=== PATIENT | female | born 1985 | race Caucasian/White ===

== ENCOUNTER 2019-02-27 21:18 | Emergency (ER) | payer MEDICAID ==
[~2019-02-27] VITALS: Ht 154.9 cm; Wt 117.9 kg
--- NOTE | 2019-02-27 21:34 | NUR ---
TO LOBBY A/W BED , AMBULATORY
--- NOTE | 2019-02-27 22:30 | NUR ---
PT AMBULATED TO BED 11
--- NOTE | 2019-02-27 22:45 | NUR ---
33 yo female bib self for c/o rash generalized. pt c/o itchiness/redness throughout body. pt aaox4, sitting up in bed. denies fever chills @ this time. abd soft non distended. skin warm dry intact. gurney locked in lowest position hx: denies allergies: denies
[2019-02-28 00:15] VITALS: BP 116/56
--- NOTE | 2019-02-28 00:16 | NUR ---
Patient discharged with v/s stable. Written and verbal after care instructions given and explained. Patient alert, oriented and verbalized understanding of instructions. Ambulatory with steady gait. All questions addressed prior to discharge. ID band removed. Patient advised to follow up with PMD. Rx of Prednisone and Benadryl given. Patient educated on indication of medication including possible reaction and side effects. Opportunity to ask questions provided and answered.
== END 2019-02-28 00:16 | disposition home or self-care (01) ==
LOC: MED 21:18
DX: R21 Rash and other nonspecific skin eruption (principal); L29.9 Pruritus, unspecified; Z90.49 Acquired absence of other specified parts of digestive tract
CPT/HCPCS: 99283

== ENCOUNTER 2021-09-10 11:21 | Emergency (ER) | payer MEDICAID ==
[~2021-09-10] VITALS: Ht 154.9 cm; Wt 120.2 kg
[2021-09-10 11:27] VITALS: BP 125/68
--- NOTE | 2021-09-10 11:31 | NUR ---
Pt ambulated to bed 08 with steady/even gait.
--- NOTE | 2021-09-10 11:35 | NUR ---
36 Y/O FEMALE BIB SELF C/P LOW BACK PAIN RADIATING TO THE R FLANK. PAIN IS RATED 9/10. PAIN IS SHARP AND CONSTANT. PT STATES SHE HAD N/V SINCE TODAY. PT DENIES FEVER, CHILLS, CHEST PAIN, SOB. PT STATES SHE TOOK TYLENOL THIS AM W/ NO SYMPTOMATIC RELIEF. PT IS ALERT AND ORIENTED X4. VSS. BED LOCKED IN LOWEST POSITION. BED RAILX1. PMH/Meds: Denies NKDA Sx: cholecystectomy
[2021-09-10 11:50] LABS: APPEARANCE,URINE CLEAR (CLEAR); BILIRUBIN,URINE NEGATIVE (NEGATIVE); BLOOD, URINE 1+ (NEGATIVE); COLOR,URINE YELLOW (YELLOW); LEUKOCYTE ESTERASE ,URINE NEGATIVE (NEGATIVE); NITRITE, URINE NEGATIVE (NEGATIVE); UGLUCOSE NEGATIVE (NEGATIVE)
--- NOTE | 2021-09-10 12:16 | NUR ---
AT PT BEDSIDE
[2021-09-10] MEDS ORDERED: KETOROLAC 30 MG/ML VIAL IM ONE (12:20)
[2021-09-10] MEDS ORDERED: HYDROcodone/APAP 10/325 MG 1 TAB TAB PO ONE ×2 (13:35→16:30)
[2021-09-10 13:38] LABS: BASOPHILS % (AUTO) 0.2 % (0.0-2.0); EOSINOPHILS # (AUTO) 0.2 K/uL (0-0.4); HEMATOCRIT 34.6 % (36-48); HEMOGLOBIN 11.1 g/dL (12.0-16.0); LYMPHOCYTES # (AUTO) 3.5 K/uL (2.5-16.5); LYMPHOCYTES % (AUTO) 28.8 % (20.5-51.1); MEAN CORPUSCULAR HEMOGLOBIN 24 pg (27-31); MEAN CORPUSCULAR HGB CONC 32 g/dL (33-37); MEAN CORPUSCULAR VOLUME 76.3 fL (80-94); MONOCYTES # (AUTO) 0.9 K/uL (0.8-1.0); NEUTROPHILS # (AUTO) 7.6 K/uL (1.8-7.7); PLATELET COUNT (AUTO) 385 K/uL (140-450); RED BLOOD CELL COUNT(AUTO) 4.54 MIL/uL (4.20-5.40); RED CELL DISTRIBUTION WIDTH 15.7 % (11.6-13.7); WHITE BLOOD COUNT (AUTO) 12.3 K/uL (4.8-10.8)
[2021-09-10 13:50] LABS: ALBUMIN 3.2 g/dL (3.4-5.0); ANION GAP 5.1 (8-16); CARBON DIOXIDE 27.4 mmol/L (21-32); CREATININE 0.5 mg/dL (0.6-1.3); POTASSIUM 3.5 mmol/L (3.5-5.1); TOTAL BILIRUBIN 0.3 mg/dL (0.0-1.0)
[2021-09-10] MEDS ORDERED: LIDOCAINE 5% 1 EA PATCH TP ONE (16:30)
[2021-09-10] MEDS ORDERED: methocarbamoL 500 MG TAB PO ONE (16:35)
[2021-09-10] MEDS ORDERED: NACL 0.9% 1,000 ML IV ONE (16:35)
[2021-09-10] MEDS ORDERED: METH-1681 PO (17:31)
[2021-09-10] MEDS ORDERED: IBUP-2213 PO (17:31)
[2021-09-10 17:57] VITALS: BP 133/69
--- NOTE | 2021-09-10 17:58 | NUR ---
Patient discharged with v/s stable. Written and verbal after care instructions given and explained. Patient alert, oriented and verbalized understanding of instructions. Ambulatory with steady gait. All questions addressed prior to discharge. ID band removed. Patient advised to follow up with PMD. Rx of IBUPROFEN, ROBAXIN given. Patient educated on indication of medication including possible reaction and side effects. Opportunity to ask questions provided and answered.
== END 2021-09-10 17:58 | disposition home or self-care (01) ==
LOC: MED 11:21
DX: E87.1 Hypo-osmolality and hyponatremia (principal); R11.10 Vomiting, unspecified; Z79.1 Long term (current) use of non-steroidal anti-inflammatories (NSAID); Z79.899 Other long term (current) drug therapy; Z90.49 Acquired absence of other specified parts of digestive tract
CPT/HCPCS: 36415; 74176; 76856; 80053; 81003; 81025; 85025; 96360; 96372; 99284; J1885; J7030; Q0092

== ENCOUNTER 2022-04-16 14:46 | Emergency (ER) | payer MEDICAID ==
[~2022-04-16] VITALS: Ht 154.9 cm; Wt 120.3 kg
[~2022-04-16 14:46] MED LIST: IBUP-2213 PO; METH-1681 PO
[2022-04-16 14:52] VITALS: BP 143/86
--- NOTE | 2022-04-16 15:01 | NUR ---
COVID, FLU SWABS DONE.
[2022-04-16] MEDS ORDERED: IBUP-1842 PO (15:28)
[2022-04-16] MEDS ORDERED: ALBU0.0912 IH (15:28)
[2022-04-16] MEDS ORDERED: BPM/118L5 PO (15:28)
--- NOTE | 2022-04-16 16:04 | NUR ---
Patient discharged with v/s stable. Written and verbal after care instructions given and explained. Patient alert, oriented and verbalized understanding of instructions. Ambulatory with steady gait. All questions addressed prior to discharge. ID band removed. Patient advised to follow up with PMD. Rx of ALBUTEROL SULFATE, BROTAPP DM LIQUID, IBUPROFEN given. Patient educated on indication of medication including possible reaction and side effects. Opportunity to ask questions provided and answered.
== END 2022-04-16 16:04 | disposition home or self-care (01) ==
LOC: MED 14:46
DX: J06.9 Acute upper respiratory infection, unspecified (principal); Z20.822 Contact with and (suspected) exposure to COVID-19
CPT/HCPCS: 99283

== ENCOUNTER 2022-09-07 16:43 | Emergency (ER) | payer MEDICAID ==
[~2022-09-07] VITALS: Ht 160 cm; Wt 117.9 kg
[~2022-09-07 16:43] MED LIST changes: +ALBU0.0912 IH; +BPM/118L5 PO; +IBUP-1842 PO
[2022-09-07 16:50] VITALS: BP 130/83
--- NOTE | 2022-09-07 17:16 | NUR ---
patient presents to er c/o right ear pain no drainage for 1 week.
[2022-09-07] MEDS ORDERED: KETOROLAC 30 MG/ML VIAL IM ONE (17:20)
[2022-09-07] MEDS ORDERED: IBUP-1842 PO (17:58)
[2022-09-07] MEDS ORDERED: OFLO5SOL27 RIGHT EAR (17:58)
--- NOTE | 2022-09-07 18:52 | NUR ---
patient feels better after ear irrigation.
[2022-09-07 19:05] VITALS: BP 130/80
--- NOTE | 2022-09-07 19:07 | NUR ---
patient d/c home with instructions after care reviewed understood left er via self ambulatory with steady gait.
== END 2022-09-07 19:07 | disposition home or self-care (01) ==
LOC: MED 16:43
DX: T16.1XXA Foreign body in right ear, initial encounter (principal); H60.91 Unspecified otitis externa, right ear; Z79.899 Other long term (current) drug therapy; Z79.1 Long term (current) use of non-steroidal anti-inflammatories (NSAID); Z79.2 Long term (current) use of antibiotics; X58.XXXA Exposure to other specified factors, initial encounter; Y92.89 Other specified places as the place of occurrence of the external cause; Y93.89 Activity, other specified; Y99.8 Other external cause status
CPT/HCPCS: 96372; 99284; J1885; 99283

== ENCOUNTER 2023-05-10 20:29 | Emergency (ER) | payer MEDICAID, OTHER ==
[~2023-05-10] VITALS: Ht 154.9 cm; Wt 112.2 kg
[~2023-05-10 20:29] MED LIST changes: +OFLO5SOL27 RIGHT EAR
[2023-05-10 21:01] VITALS: BP 117/40; PULSE 84; RESP 16; TEMP 98.1; O2SAT 99
[2023-05-11] MEDS ORDERED: NAPR-54 PO (00:39)
[2023-05-11] MEDS ORDERED: ONDA-188 SL (00:44)
== END 2023-05-11 01:00 | disposition home or self-care (01) ==
LOC: MED 20:29
DX: F07.81 Postconcussional syndrome (principal); R42 Dizziness and giddiness; Z79.899 Other long term (current) drug therapy
CPT/HCPCS: 70450; 99284

== ENCOUNTER 2023-08-13 17:44 | Emergency (ER) | payer OTHER ==
[~2023-08-13] VITALS: Ht 154.9 cm; Wt 117.9 kg
[~2023-08-13 17:44] MED LIST changes: +NAPR-54 PO; +ONDA-188 SL
[2023-08-13 17:46] VITALS: BP 95/72; PULSE 90; RESP 20; TEMP 98.4; O2SAT 99
[2023-08-13 19:27] VITALS: O2SAT 100
[2023-08-13] MEDS: PROCHLORPERAZINE 10 MG/2 ML VIAL IVP ONE (20:20)
[2023-08-13] MEDS: NACL 0.9% 1,000 ML IV ONE (20:23)
[2023-08-13] MEDS: KETOROLAC 30 MG/ML VIAL IVP ONE (20:25)
[2023-08-13] MEDS ORDERED: IBUP-2213 PO (20:36)
[2023-08-13] MEDS ORDERED: CEPH-588 PO (20:36)
[2023-08-13 20:52] VITALS: BP 113/57; PULSE 89; RESP 14; TEMP 98.1; O2SAT 99
== END 2023-08-13 20:52 | disposition home or self-care (01) ==
LOC: MED 17:44
DX: L03.032 Cellulitis of left toe (principal); R51.9 Headache, unspecified; Z79.899 Other long term (current) drug therapy
CPT/HCPCS: 81025; 96361; 96374; 96375; 99284; J0780; J1885; J7030